=== PATIENT | male | born 1975 | race Caucasian/White ===

== ENCOUNTER 2025-04-02 08:50 | Day surgery (SDC) | payer MEDICAID, SELFPAY ==
[2025-04-01 14:31] VITALS: BMI 37.8
[2025-04-02] VITALS (10 sets, daily range): BP systolic 109–136; BP diastolic 74–93; PULSE 68–86; RESP 15–22; TEMP 36.9; O2SAT 97–100; BMI 38.2
[2025-04-02] MEDS: RINGERS LACTATED 500 ML 500 ML 20 ML IV (09:51)
[2025-04-02] MEDS: fentaNYL CIT INJ 50 mCg/ML AMP 2ML (ASD USE ONLY) IVP (09:53)
[2025-04-02] MEDS: MIDAZOLAM INJ 1 MG/ML VIAL 2 ML (ASD USE ONLY) 2 MG IVP (09:53)
[2025-04-02] MEDS: SIMETHICONE 40 MG/0.6 ML ORAL SYRINGE PO (09:55)
== END 2025-04-02 10:50 | disposition home or self-care (01) ==
PROVIDERS: PCP Physician Assistant; Referring Provider Internal Medicine Gastroenterology; Visit Provider Internal Medicine Gastroenterology
PROC: 0DBE8ZX Excision of Large Intestine, Via Natural or Artificial Opening Endoscopic, Diagnostic (ICD-10-PCS; CPT 45380; principal; 2025-04-02 13:30)
DX: Z12.11 Encounter for screening for malignant neoplasm of colon (principal); I10 Essential (primary) hypertension; K64.8 Other hemorrhoids; K57.30 Diverticulosis of large intestine without perforation or abscess without bleeding
CPT/HCPCS: 45378; A4649; J1200; J2250; J3010; J7120; A9270